=== PATIENT | male | born 1970 ===

== ENCOUNTER 2021-01-18 22:58 | Emergency (ER) | payer OTHER ==
[~2021-01-18] VITALS: Ht 167.6 cm; Wt 81.7 kg
[2021-01-19] MEDS ORDERED: Cephalexin500 M1 PO (07:58)
== END 2021-01-19 07:50 | disposition home or self-care (01) ==
LOC: ER 22:58
DX: L03.115 Cellulitis of right lower limb (principal); S80.211A Abrasion, right knee, initial encounter; W01.0XXA Fall on same level from slipping, tripping and stumbling without subsequent striking against object, initial encounter; Y93.01 Activity, walking, marching and hiking; Y92.821 Forest as the place of occurrence of the external cause
CPT/HCPCS: 99282